=== PATIENT | female | born 1940 | race Caucasian/White ===

== ENCOUNTER 2017-08-23 16:00 | Emergency (ER) | payer OTHER ==
[~2017-08-23] VITALS: Ht 157.5 cm; Wt 77.1 kg
[2017-08-23] MEDS ORDERED: HYDROCHLOROTHIA25 MG PO (16:17)
[2017-08-23] MEDS ORDERED: GLIPIZIDE10 MG PO (16:17)
[2017-08-23] MEDS ORDERED: LABETALOL HCL300 MG PO (16:17)
[2017-08-23] MEDS ORDERED: FENOFIBRATE145 MG PO (16:17)
[2017-08-23] MEDS ORDERED: SYNTHROID50 MCG PO (16:18)
== END 2017-08-23 22:04 | disposition home or self-care (01) ==
LOC: ER 16:00
DX: E86.0 Dehydration (principal); R11.11 Vomiting without nausea; N39.0 Urinary tract infection, site not specified